=== PATIENT | male | born 1935 | race Caucasian/White ===

== ENCOUNTER → 2016-09-11 | Outpatient (CLI) | payer MEDICARE ==
[~2016-09-11] MED LIST: ASPI325T PO; FOLI1TAB; LIPI40TA PO; LORA10TA PO; MULTI VITAMINS; OMEP20CA5 PO; PYRI50TA PO; TOPR50TA
[2016-09-11 09:55] LABS: AUTOMATED NEUTROPHIL # 3.4 TH/MM3 (1.8-7.7); BASOPHIL % 0.9 % (0.0-2.0); EOSINOPHIL # 0.2 TH/MM3 (0-0.4); EOSINOPHIL % 4.1 % (0.0-4.0); HEMATOCRIT 36.6 % (39.0-51.0); HEMO FLAGS DIFF FINAL; LYMPH % 16.3 % (9.0-44.0); LYMPHOCYTE # 0.8 TH/MM3 (1.0-4.8); MEAN CELL VOLUME 100.2 FL (80.0-100.0); MEAN CORPUSCULAR HEMOGLOBIN 34.6 PG (27.0-34.0); MEAN CORPUSCULAR HGB CONC 34.5 % (32.0-36.0); MONO % 8.8 % (0.0-8.0); NEUT % 69.9 % (16.0-70.0); PLATELET COUNT 144 TH/MM3 (150-450); RED BLOOD COUNT 3.65 MIL/MM3 (4.50-5.90); RED CELL DISTRIBUTION WIDTH 13.2 % (11.6-17.2); WHITE BLOOD COUNT 4.9 TH/MM3 (4.0-11.0)
[2016-09-11 10:35] LABS: ALKALINE PHOSPHATASE 60 U/L (45-117); ALT (GPT) 30 U/L (12-78); ANION GAP 6 MEQ/L (5-15); AST (GOT) 25 U/L (15-37); BICARBONATE 26.7 MEQ/L (21.0-32.0); BLOOD UREA NITROGEN 21 MG/DL (7-18); CHLORIDE 109 MEQ/L (98-107); GLOMERULAR FILTRATION RATE 58 ML/MIN (>89); GLUCOSE,FASTING 89 MG/DL (74-99); POTASSIUM 4.1 MEQ/L (3.5-5.1); SODIUM (NA) 142 MEQ/L (136-145); TOTAL BILIRUBIN ADULT 0.6 MG/DL (0.2-1.0)
== END ==
LOC: PLAB 06:44
PROVIDERS: ATTEND Family Medicine
DX: D64.9 Anemia, unspecified (principal); I25.10 Atherosclerotic heart disease of native coronary artery without angina pectoris; R53.83 Other fatigue
CPT/HCPCS: 36415; 80053; 84443; 85025

== ENCOUNTER → 2016-11-17 | Outpatient (CLI) | payer MEDICARE ==
[2016-11-17 13:28] LABS: TRANSFERRIN IRON PROFILE 237 MG/DL (200-360)
== END ==
LOC: PLAB 08:36
DX: K22.70 Barrett's esophagus without dysplasia (principal); D64.9 Anemia, unspecified; Z80.0 Family history of malignant neoplasm of digestive organs; Z86.010 Personal history of colon polyps
CPT/HCPCS: 36415; 83540; 83550

== ENCOUNTER → 2017-09-23 | Outpatient (CLI) | payer MEDICARE ==
[2017-09-23 10:31] LABS: ALBUMIN 3.9 GM/DL (3.4-5.0); AST (GOT) 23 U/L (15-37); BICARBONATE 27.8 MEQ/L (21.0-32.0); BLOOD UREA NITROGEN 20 MG/DL (7-18); CALCIUM 9.1 MG/DL (8.5-10.1); CHLORIDE 108 MEQ/L (98-107); CHOLESTEROL 136 MG/DL (120-200); CREATININE 1.26 MG/DL (0.60-1.30); GLOMERULAR FILTRATION RATE 55 ML/MIN (>89); GLUCOSE,FASTING 97 MG/DL (74-99); SODIUM (NA) 143 MEQ/L (136-145)
[2017-09-23 10:32] LABS: TRIGLYCERIDES 62 MG/DL (42-150)
[2017-09-23 10:38] LABS: AUTOMATED NEUTROPHIL # 5.2 TH/MM3 (1.8-7.7); BASOPHIL % 0.6 % (0.0-2.0); EOSINOPHIL # 0.2 TH/MM3 (0-0.4); EOSINOPHIL % 2.4 % (0.0-4.0); HEMATOCRIT 38.7 % (39.0-51.0); HEMOGLOBIN 13.2 GM/DL (13.0-17.0); LYMPH % 12.1 % (9.0-44.0); LYMPHOCYTE # 0.8 TH/MM3 (1.0-4.8); MEAN CELL VOLUME 100.8 FL (80.0-100.0); MEAN CORPUSCULAR HEMOGLOBIN 34.4 PG (27.0-34.0); MEAN CORPUSCULAR HGB CONC 34.2 % (32.0-36.0); MEAN PLATELET VOLUME 9.1 FL (7.0-11.0); MONO % 8.8 % (0.0-8.0); MONOCYTE # 0.6 TH/MM3 (0-0.9); NEUT % 76.1 % (16.0-70.0); PLATELET COUNT 156 TH/MM3 (150-450); RED BLOOD COUNT 3.84 MIL/MM3 (4.50-5.90); RED CELL DISTRIBUTION WIDTH 13.1 % (11.6-17.2); WHITE BLOOD COUNT 6.8 TH/MM3 (4.0-11.0)
[2017-09-23 10:58] LABS: % SATURATION IRON PROFILE 23.2 % (20-50); ALKALINE PHOSPHATASE 69 U/L (45-117); ALT (GPT) 33 U/L (12-78); CHOLESTEROL/ HDL RATIO 2.58 RATIO; HDL CHOLESTEROL 52.6 MG/DL (40.0-60.0); IRON (FE) 72 MCG/DL (65-175); LDL CHOLESTEROL 71 MG/DL (0-99); TOTAL BILIRUBIN ADULT 0.4 MG/DL (0.2-1.0); TOTAL IRON BINDING CAPACITY 311 MCG/DL (250-450); TOTAL PROTEIN 7.3 GM/DL (6.4-8.2)
[2017-09-23 11:02] LABS: FOLATE GREATER THAN 20.0 NG/ML (3.1-17.5)
[2017-09-23 16:23] LABS: HEMOGLOBIN A1C 5.4 % (4.3-6.0)
== END ==
LOC: PLAB 07:00
PROVIDERS: ATTEND Family Medicine
DX: I25.10 Atherosclerotic heart disease of native coronary artery without angina pectoris (principal); D64.9 Anemia, unspecified; R73.01 Impaired fasting glucose; R53.83 Other fatigue; E78.5 Hyperlipidemia, unspecified; N40.0 Benign prostatic hyperplasia without lower urinary tract symptoms
CPT/HCPCS: 36415; 80053; 80061; 82607; 82746; 83036; 83540; 83550; 84153; 84443; 85025